=== PATIENT | male | born 1995 | race Caucasian/White ===

== ENCOUNTER 2017-01-12 01:29 | Emergency (ER) | payer SELFPAY | END 2017-01-12 02:54 | disposition home or self-care (01) | LOC: FER 01:29 | DX: S63.654A Sprain of metacarpophalangeal joint of right ring finger, initial encounter (principal); S63.650A Sprain of metacarpophalangeal joint of right index finger, initial encounter; F17.210 Nicotine dependence, cigarettes, uncomplicated; Z88.0 Allergy status to penicillin; W22.8XXA Striking against or struck by other objects, initial encounter; Y92.009 Unspecified place in unspecified non-institutional (private) residence as the place of occurrence of the external cause | CPT/HCPCS: 73130; 99283 ==